=== PATIENT | female | born 1945 | race Caucasian/White ===

== ENCOUNTER 2024-03-22 11:02 | Outpatient (CLI) | payer MEDICARE, OTHER | END 2024-03-22 11:03 | disposition home or self-care (01) | LOC: CSHMAMMO 11:02 | PROVIDERS: ATTEND Nurse Practitioner | DX: Z12.31 Encounter for screening mammogram for malignant neoplasm of breast (principal); Z13.820 Encounter for screening for osteoporosis; M85.89 Other specified disorders of bone density and structure, multiple sites; R92.30 Dense breasts, unspecified | CPT/HCPCS: 77067; 77080 ==